=== PATIENT | female | born 1985 ===

== ENCOUNTER 2024-04-12 06:15 | Day surgery (SDC) | payer OTHER, SELFPAY ==
[2024-04-12] VITALS (7 sets, daily range): BP systolic 108–123; BP diastolic 65–91; BMI 37.8
[2024-04-12] MEDS: NORMOSOL-R/PLASMALYTE-A 1000 IV (10:15)
[2024-04-12 10:18] LABS: HCG, Urine Qualitative Screen Negative
== END 2024-04-12 12:47 | disposition home or self-care (01) ==
LOC: SDS 06:15
PROVIDERS: ATTENDING PHYSICIAN Obstetrics & Gynecology Gynecology
DX: D25.0 Submucous leiomyoma of uterus (principal); R93.89 Abnormal findings on diagnostic imaging of other specified body structures; N84.0 Polyp of corpus uteri; N92.0 Excessive and frequent menstruation with regular cycle
CPT/HCPCS: 58561; 88305; 81025